=== PATIENT | male | born 1935 | race Two or more races ===

== ENCOUNTER → 2017-12-31 | Outpatient (CLI) | payer MEDICARE | END | disposition home or self-care (01) | LOC: PETCFH 08:41 | PROVIDERS: ATTEND Specialist | DX: C78.00 Secondary malignant neoplasm of unspecified lung (principal); C67.2 Malignant neoplasm of lateral wall of bladder; M89.9 Disorder of bone, unspecified | CPT/HCPCS: 78815; A9552 ==

== ENCOUNTER 2018-01-16 14:28 | Inpatient (IN) | payer MEDICARE ==
[~2018-01-16] VITALS: Ht 165.1 cm; Wt 68.3 kg
[2018-01-16] MEDS ORDERED: SODIUM CHLORIDE FLUSH 10ML SYR IVF ONE (15:00)
[2018-01-16] MEDS ORDERED: LOVA20TA2 PO (15:16)
[2018-01-16] MEDS ORDERED: AMLO5TAB2 PO (15:16)
[2018-01-16] MEDS ORDERED: OXYC-307 PO (15:16)
[2018-01-16] MEDS ORDERED: IRON15TA3 PO (15:16)
[2018-01-16] MEDS ORDERED: LEVO175T5 PO (15:16)
[2018-01-16] MEDS ORDERED: LOSA50TA6 PO (15:16)
[2018-01-16] MEDS ORDERED: GABA300C10 PO (15:16)
[2018-01-16] MEDS ORDERED: SODIUM CHLORIDE 0.9% 1,000ML IVBOLUS ONE (15:30)
[2018-01-16 15:39] LABS: ALBUMIN 2.3 g/dL (3.4-5.0); ANION GAP 9 mmol/L (5-15); CALCIUM 8.7 mg/dL (8.5-10.1); CHLORIDE 102 mmol/L (98-107)
[2018-01-16 15:41] LABS: MEAN CORPUSCULAR HEMOGLOBIN 32.2 pg (27.5-34.5); MEAN CORPUSCULAR HGB CONC 33.1 g/dL (33.2-36.2); MEAN CORPUSCULAR VOLUME 97.3 fL (81-97); MEAN PLATELET VOLUME 7.5 fL (7.4-10.4); PLATELET COUNT 231 x10^3/uL (130-400); RED BLOOD COUNT 2.33 x10^6/uL (4.38-5.82); RED CELL DISTRIBUTION WIDTH 14.1 % (9.4-14.8)
[2018-01-16 15:42] LABS: ALANINE AMINOTRANSFERASE 15 U/L (12-78); ALKALINE PHOSPHATASE 139 U/L (45-117); BILIRUBIN,TOTAL 0.9 mg/dL (0.2-1.0); CREATININE 3.94 mg/dL (0.7-1.3); TOTAL PROTEIN 7.4 g/dL (6.4-8.2)
[2018-01-16 15:49] LABS: MD YES
[2018-01-16 15:51] LABS: BAND#(MANUAL) 3.45 x10^3/uL; BANDS%(MANUAL) 29 % (0-7); LYMPH#(MANUAL) 0.36 x10^3/uL (1-3.4); LYMPHS% (MANUAL) 3 % (22-44); MONOS% (MANUAL) 5 % (2-9); SEGS% (MANUAL) 63 % (42-75)
[2018-01-16 15:56] LABS: ANISOCYTOSIS 1+
[2018-01-16 15:57] LABS: <PLATELET ESTIMATE> ADEQUATE; <PLT MORPHOLOGY> NORMAL PLT MORPH; POLYCHROMASIA 1+
[2018-01-16] MEDS ORDERED: SODIUM BICARB 8.4%, 50ML SYRINGE ONE (16:20)
[2018-01-16] MEDS ORDERED: SODIUM POLYSTYRENE SULFONATE ORAL SUSP ONE ×2 (16:20→17:24)
[2018-01-16] MEDS ORDERED: FUROSEMIDE 40 MG/4 ML ONE (16:20)
[2018-01-16] MEDS ORDERED: SODIUM POLY SULFONATE UDC 15 GM/60 ML PO ONE (16:30)
[2018-01-16] MEDS ORDERED: FUROSEMIDE 40 MG/4 ML IVPush ONE (16:30)
[2018-01-16] MEDS ORDERED: SODIUM BICARB 8.4%, 50ML SYRINGE IVPush ONE (16:30)
[2018-01-16] MEDS ORDERED: ONDANSETRON ODT 4 MG PO PRN (17:00)
[2018-01-16] MEDS ORDERED: CEFTRIAXONE PMX 2GM/50ML 50 ML IV SCH (17:00)
[2018-01-16] MEDS ORDERED: ACETAMINOPHEN 325 MG TABLET PO PRN (17:00)
[2018-01-16] MEDS ORDERED: ONDANSETRON 2MG/ML, 2ML IVPush PRN (17:00)
[2018-01-16] MEDS ORDERED: HEPARIN 5,000 UNITS/ML, 1ML ONE (19:27)
[2018-01-16] MEDS ORDERED: CEFTRIAXONE PMX 2GM/50ML 50 ML ONE (19:27)
[2018-01-16] MEDS: SODIUM CHLORIDE 0.9% 1,000 ML IV SCH (19:42)
[2018-01-16] MEDS: HEPARIN 5,000 UNITS/ML, 1ML SQ SCH (19:42)
[2018-01-16 19:55] LABS: MICROSCOPIC INDICATED
[2018-01-16 20:07] LABS: CULTURE INDICATED? YES
[2018-01-16] MEDS: GABAPENTIN 300 MG CAPSULE PO SCH (21:00)
[2018-01-16] MEDS: DOCUSATE 100 MG CAPSULE PO SCH (21:00)
[2018-01-16] MEDS: LACTULOSE 10 GM/15 ML UDC PO SCH (21:00)
[2018-01-16 22:05] VITALS: BP 92/61
[2018-01-16] MEDS ORDERED: BISACODYL 10 MG SUPP ONE (22:54)
[2018-01-16] MEDS ORDERED: ACETAMINOPHEN 650 MG SUPP ONE (22:54)
[2018-01-16] MEDS ORDERED: BISACODYL 10 MG SUPP PR PRN (23:00)
[2018-01-16] MEDS ORDERED: ACETAMINOPHEN 650 MG SUPP PR PRN (23:00)
[2018-01-16] MEDS: ACETAMINOPHEN 650 MG SUPP PR PRN ×2 (23:46→23:57)
[2018-01-17] MEDS ORDERED: BISACODYL 10 MG SUPP PR PRN
[2018-01-17 00:34] VITALS: BP 117/60
[2018-01-17] MEDS: HEPARIN 5,000 UNITS/ML, 1ML SQ SCH (03:45)
[2018-01-17] MEDS: SODIUM CHLORIDE 0.9% 1,000 ML IV SCH (03:51)
[2018-01-17 06:05] LABS: MEAN CORPUSCULAR HEMOGLOBIN 32.7 pg (27.5-34.5); MEAN CORPUSCULAR HGB CONC 33.6 g/dL (33.2-36.2); MEAN CORPUSCULAR VOLUME 97.5 fL (81-97); MEAN PLATELET VOLUME 7.7 fL (7.4-10.4); PLATELET COUNT 189 x10^3/uL (130-400); RED BLOOD COUNT 1.89 x10^6/uL (4.38-5.82); RED CELL DISTRIBUTION WIDTH 14.1 % (9.4-14.8)
[2018-01-17 06:11] LABS: ALANINE AMINOTRANSFERASE 13 U/L (12-78); ANION GAP 6 mmol/L (5-15); CALCIUM 7.8 mg/dL (8.5-10.1); CHLORIDE 106 mmol/L (98-107); CREATININE 4.37 mg/dL (0.7-1.3)
[2018-01-17 06:13] LABS: ALKALINE PHOSPHATASE 117 U/L (45-117); BILIRUBIN,TOTAL 0.7 mg/dL (0.2-1.0); TOTAL PROTEIN 6.3 g/dL (6.4-8.2)
[2018-01-17 06:42] LABS: MD YES
[2018-01-17 06:48] LABS: EOS#(MANUAL) 0.09 x10^3/uL (0.0-0.4); EOS% (MANUAL) 1 % (1-7)
[2018-01-17 06:50] LABS: <PLATELET ESTIMATE> ADEQUATE; <PLT MORPHOLOGY> NORMAL PLT MORPH; ANISOCYTOSIS 1+; BAND#(MANUAL) 0.85 x10^3/uL; BANDS%(MANUAL) 10 % (0-7); LYMPH#(MANUAL) 0.94 x10^3/uL (1-3.4); LYMPHS% (MANUAL) 11 % (22-44); MONOS#(MANUAL) 0.17 x10^3/uL (0.3-2.7); MONOS% (MANUAL) 2 % (2-9); POLYCHROMASIA 1+; SEG#(MANUAL) 6.46 x10^3/uL (1.8-6.8); SEGS% (MANUAL) 76 % (42-75)
[2018-01-17 08:00] VITALS: BP 79/47
[2018-01-17] MEDS ORDERED: OXYcodone/APAP 10/325MG TABLET PO SCH (09:00)
[2018-01-17] MEDS: LACTULOSE 10 GM/15 ML UDC PO SCH (09:00)
[2018-01-17] MEDS ORDERED: LEVOTHYROXINE 175 MCG TABLET PO SCH (09:00)
[2018-01-17] MEDS: DOCUSATE 100 MG CAPSULE PO SCH (09:00)
[2018-01-17] MEDS: GABAPENTIN 300 MG CAPSULE PO SCH (10:01)
[2018-01-18] MEDS ORDERED: LEVOTHYROXINE 150 MCG TABLET PO SCH (07:30)
== END 2018-01-17 15:19 | disposition hospice, home (50) | DRG 640 ==
LOC: ED 16:31 → EDIP 16:32 → ED 17:28 → 4WST 22:05
PROVIDERS: ADMIT Internal Medicine; ATTEND Internal Medicine
PROC: 0T9B70Z Drainage of Bladder with Drainage Device, Via Natural or Artificial Opening (ICD-10-PCS; principal; 2018-01-16)
DX: E87.5 Hyperkalemia (principal); E43 Unspecified severe protein-calorie malnutrition; C78.00 Secondary malignant neoplasm of unspecified lung; C79.51 Secondary malignant neoplasm of bone; G62.9 Polyneuropathy, unspecified; C61 Malignant neoplasm of prostate; C67.9 Malignant neoplasm of bladder, unspecified; F11.20 Opioid dependence, uncomplicated; D63.0 Anemia in neoplastic disease; N39.0 Urinary tract infection, site not specified; D72.825 Bandemia; D72.829 Elevated white blood cell count, unspecified; K59.00 Constipation, unspecified; G89.29 Other chronic pain; N18.9 Chronic kidney disease, unspecified; I12.9 Hypertensive chronic kidney disease with stage 1 through stage 4 chronic kidney disease, or unspecified chronic kidney disease; E03.9 Hypothyroidism, unspecified; E78.5 Hyperlipidemia, unspecified; Z88.0 Allergy status to penicillin
CPT/HCPCS: 36415; 74022; 80053; 81001; 82550; 82728; 83540; 83550; 83605; 83735; 84100; 84132; 84443; 84466; 85025; 87040; 87077; 87086; 87186; 96361; 96374; 96375; J0696; J1644; J1940; J7030